=== PATIENT | female | born 1995 | race Native Hawaiian/Other Pacific Islander ===

== ENCOUNTER 2018-02-09 19:37 | Emergency (ER) | payer OTHER ==
[~2018-02-09] VITALS: Ht 157.5 cm; Wt 63.5 kg
[2018-02-09 19:47] VITALS: BP 126/68; TEMP 98.1
== END 2018-02-09 20:20 | disposition home or self-care (01) ==
LOC: ED 19:37
DX: K08.89 Other specified disorders of teeth and supporting structures (principal); K04.7 Periapical abscess without sinus
CPT/HCPCS: 99281

== ENCOUNTER 2021-09-08 21:07 | Emergency (ER) | payer OTHER ==
[~2021-09-08] VITALS: Ht 157.5 cm; Wt 90.7 kg
[2021-09-08 21:44] LABS: PLATELET COUNT 246 K/uL (152-353)
[2021-09-08 21:53] LABS: POTASSIUM 3.6 mmol/L (3.6-5.2)
[2021-09-08 22:50] VITALS: BP 121/70; TEMP 99
== END 2021-09-08 22:50 | disposition home or self-care (01) ==
LOC: ED 21:07
PROVIDERS: Hospitalist
DX: R10.84 Generalized abdominal pain (principal)
CPT/HCPCS: 36415; 80053; 81000; 81025; 83690; 85027; 96360; 96374; 99284; J1885; J2405; Q9963

== ENCOUNTER 2021-09-21 02:19 | Emergency (ER) | payer OTHER ==
[~2021-09-21] VITALS: Ht 157.5 cm; Wt 86.2 kg
[2021-09-21 03:24] VITALS: BP 118/73; TEMP 98.6
== END 2021-09-21 03:24 | disposition home or self-care (01) ==
LOC: ED 02:19
DX: S70.361A Insect bite (nonvenomous), right thigh, initial encounter (principal); R22.41 Localized swelling, mass and lump, right lower limb; W57.XXXA Bitten or stung by nonvenomous insect and other nonvenomous arthropods, initial encounter; Y92.89 Other specified places as the place of occurrence of the external cause
CPT/HCPCS: 36415; 96374; 96375; 99284; J2930